=== PATIENT | female | born 1955 | race Caucasian/White ===

== ENCOUNTER → 2016-10-13 | Outpatient (CLI) | payer OTHER ==
[~2016-10-13] VITALS: Ht 162.6 cm; Wt 70.0 kg
[~2016-10-13] MED LIST: ALEVE220 MG PO; ALLERGY RELIEF10 M1 PO; ALLERGY25 M2 PO; CALCIUM PO; MIRALAX255 GM PO; NOHOMEMEDS; PREDNISONE10 MG PO; PROBIOTIC1 EAC1 PO; RANITIDINE HCL150 MG PO; ULTRAM50 MG PO; VITAMIN D PO; WOMEN'S MULTI200 MCG PO
[2016-10-13 13:03] VITALS: BP 128/76
[2016-10-13 14:45] VITALS: BP 150/78
== END | disposition home or self-care (01) ==
LOC: IVINF 10-02 17:30
DX: M81.0 Age-related osteoporosis without current pathological fracture (principal)
CPT/HCPCS: 96365; J3489

== ENCOUNTER 2017-02-15 14:07 | Emergency (ER) | payer OTHER ==
[~2017-02-15] VITALS: Ht 162.6 cm; Wt 70.4 kg
[2017-02-15 14:13] VITALS: BP 177/93
[2017-02-15] MEDS ORDERED: LORTAB 5-325 M1 EACH PO (15:46)
== END 2017-02-15 16:19 | disposition home or self-care (01) ==
LOC: EME 14:07
PROC: 2W39X1Z Immobilization of Left Upper Extremity using Splint (ICD-10-PCS; principal; 2017-02-15)
DX: S52.502A Unspecified fracture of the lower end of left radius, initial encounter for closed fracture (principal); W10.9XXA Fall (on) (from) unspecified stairs and steps, initial encounter
CPT/HCPCS: 73110; 99281; 99284

== ENCOUNTER → 2017-10-22 | Outpatient (CLI) | payer OTHER ==
[~2017-10-22] VITALS: Ht 162.6 cm; Wt 70.5 kg
[~2017-10-22] MED LIST changes: +LORTAB 5-325 M1 EACH PO
[2017-10-22 13:49] VITALS: BP 149/77
== END | disposition home or self-care (01) ==
LOC: IVINF 13:04
DX: M81.0 Age-related osteoporosis without current pathological fracture (principal)
CPT/HCPCS: 96365; J3489